=== PATIENT | male | born 1975 | race Caucasian/White ===

== ENCOUNTER 2019-01-27 15:15 | Emergency (ER) | payer SELFPAY ==
[2019-01-27 15:22] VITALS: BP 156/116; PULSE 98; RESP 18; TEMP 37.3; O2SAT 100; BMI 26.5
[2019-01-27 19:38] VITALS: BP 160/122; PULSE 75; RESP 18; O2SAT 84
[2019-01-27] MEDS: TET,DIPH,PERTUSS(ACELL),VAC/PF 0.5 ML SYRINGE IM (20:05)
[2019-01-27 21:43] VITALS: BP 151/101; PULSE 78; RESP 16; O2SAT 98
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
== END 2019-01-27 21:50 | disposition home or self-care (01) ==
PROVIDERS: Emergency Provider Nurse Practitioner Family
DX: T23.001A Burn of unspecified degree of right hand, unspecified site, initial encounter (principal); Z23 Encounter for immunization
CPT/HCPCS: 90471; 99282; 99283; 90715

== ENCOUNTER → 2023-06-09 14:20 | Outpatient (CLI) | payer OTHER, SELFPAY ==
--- NOTE | 2023-06-09 14:24 | DI.RAD.S_ITS ---
PROCEDURE: XR LUMBAR SPINE MIN 4V INDICATIONS: BACK PAIN TECHNIQUE: 5 views of the lumbar spine were acquired, including bilateral oblique views. COMPARISON: None. FINDINGS: Bones: 5 nonrib-bearing vertebrae are present. There is normal bony alignment. No vertebral body compression fractures. No suspicious bony lesions. Moderate disc height loss at L2-3, L4-5 and L5-S1. Mild disc height loss at remaining levels. Facet arthrosis L4 through S1. Soft tissues: Overlying bowel gas pattern is normal. No suspicious soft tissue calcifications. Oblique images: No pars defects. IMPRESSION: Vorl-rn-iijwrtxm degenerative disc disease and lower lumbar facet arthrosis. Dictated by: Joseph Hernandez M.D. on 06/09/2023 at 14:58 Approved by: Joseph Hernandez M.D. on 06/09/2023 at 14:59
== END ==
PROVIDERS: PCP Internal Medicine; Referring Provider Anesthesiology; Visit Provider Anesthesiology
DX: M51.36 Other intervertebral disc degeneration, lumbar region (principal); M51.37 Other intervertebral disc degeneration, lumbosacral region; M47.816 Spondylosis without myelopathy or radiculopathy, lumbar region; M47.817 Spondylosis without myelopathy or radiculopathy, lumbosacral region; M54.9 Dorsalgia, unspecified
CPT/HCPCS: 72110

== ENCOUNTER 2023-07-06 12:53 | Outpatient (CLI) | payer OTHER, SELFPAY ==
[2023-07-06] VITALS (10 sets, daily range): BP systolic 123–185; BP diastolic 80–109; PULSE 98–125; RESP 12–20; TEMP 36.9; O2SAT 95–100
--- NOTE | 2023-07-06 12:54 | DI.RAD.S_ITS ---
PROCEDURE: PAIN L/S TRANSFORAMINAL INJECT INDICATIONS: SPONDYLOSIS COMPARISON: [facility], RG, MRI L-SPINE W/O CONTRAST, 04/26/2023, 7:54. FINDINGS: Fluoroscopic spot filming was performed to verify placement of spinal needles on right at the L2-L3 and L3-L4 levels, as labeled on the films. Appropriate location of the needle tips was confirmed by injection of iodinated contrast. IMPRESSION: Intraprocedural examination demonstrating appropriate positions of the needles. Dictated by: Emir Hyatt M.D. on 07/07/2023 at 14:42 Approved by: Emir Hyatt M.D. on 07/07/2023 at 14:43
[2023-07-06] MEDS: IOPAMIDOL 15 ML VIAL 3 ML INJ (13:37)
[2023-07-06] MEDS: fentaNYL 100 MCG/2 ML INJ 75 MCG IV (13:38)
[2023-07-06] MEDS: DEXAMETHASONE 10 MG/ML VIAL 20 MG INJ (13:38)
[2023-07-06] MEDS: fentaNYL 100 MCG/2 ML INJ 25 MCG IV (13:43)
--- NOTE | 2023-07-06 14:01 | P.PCN_ITS ---
Date/Time/Diagnoses Date of procedure: 07/06/23 Time of procedure: 13:30 Procedure Notes Physician: Scott Simon Total Fluoroscopy time (seconds): 33 Total sedation minutes: 20 Procedure in detail & Post-procedure care: Right L2-3 and L3-4 Transforaminal Epidural Steroid Injection Indications: Scott is presenting for treatment of lumbar radiculopathy with low back and leg pain. Preoperative diagnosis: Lumbar radiculopathy Postoperative diagnosis: Same Focused Examination: Ax3 Mood and affect are normal Vital Signs: VSS ASA: 2 Consent: Following review of allergies and potential side effects/complications, including, but not necessarily limited to, infection, allergic reaction, local tissue breakdown, stroke, temporary or permanent nerve injury, paralysis, and possible , the patient indicated that they understood and agreed to proceed.? An informed consent document was signed by the patient, witnessed by a nurse and placed in the patient's chart.? Additionally, other treatment options including medications and physical therapy were reviewed with the patient. All questions were answered. Site was then marked. Anesthesia: After review of previous anesthetic history and IV conscious s edation, the patient was deemed safe to proceed with today's procedure with IV conscious sedation. IV sedation was accomplished with fentanyl 100 mcg administered by the RN after order by Dr. Simon. Sedation was titrated to patient comfort during the course of the procedure. Patient remained responsive to all verbal commands. Position: Prone Monitoring: NIBP, Pulse oximetry, 3 lead EKG Needle used: 22G 5 inch spinal needle Contrast: Isovue 300M Injectate: 10 mg Dexamethasone mixed with 1% lidocaine 1 ml and normal saline 1 mL Technique: The skin was prepped with chloraprep and draped in a sterile fashion. Time out was performed as per protocol. Oxygen applied via NC. Skin and subcutaneous structures of the needle entry site were infiltrated with 3mL of lidocaine 1%. Under fluoroscopic guidance, using an ipsilateral oblique view,?a 22 gauge 5 inch needle was advanced to the base of the L2?pedicle.? The needle was advanced to the superio-posterior aspect of the neural foramen under lateral view.? Oblique and AP views were rechecked. No paresthesias noted by the patient during needle placement. In AP view and utilizing real-time digital subtraction fluoroscopy, 2 ml contrast was slowly injected. Epidural spread was observed without evidence for intravascular nor intrathecal uptake. Contrast spread was seen craniocaudally. The above injectate was then administered, and the needle was subsequently withdrawn. Skin and subcutaneous structures of the needle entry site were infiltrated with 3mL of lidocaine 1%. Under fluoroscopic guidance, using an ipsilateral oblique view,?a 22 gauge 5 inch needle was advanced to the base of the L3?pedicle.? The needle was advanced to the superio-posterior aspect of the neural foramen under lateral view.? Oblique and AP views were rechecked. No paresthesias noted by the patient during needle placement. In AP view and utilizing real-time digital subtraction fluoroscopy, 2 ml contrast was slowly injected. Epidural spread was observed without evidence for intravascular nor intrathecal uptake. Contrast spread was seen craniocaudally. The above injectate was then administered, and the needle was subsequently withdrawn.Band-Aids applied to injection sites. EBL: less than 1 ml Complications: None Post Procedure: Patient was taken to the recovery and monitored. The patient was provided a Pain Log to continue to record the patient's response to the target- specific procedure prior to the patient's follow-up visit with the referring physician. Patient was stable upon discharge. Detailed post procedure instructions were provided. Patient was asked to call in the event of worsening pain, fever, weakness, numbness or bladder or bowel incontinence.
--- NOTE | 2023-07-06 14:26 | PC.NURSE ---
Patient reports that his pain is the best it has been in 3 months. At d/c patient stood at chair full weight bearing and took steps, no issues. When standing at car took a few steps and reports that his right knee cap is more numb then prior procedure. Pt was able to take a few more steps. Encourage patient to be very careful with walking and to take it easy the rest of the day. Pt has no questions or concerns.
== END 2023-07-06 14:20 | disposition home or self-care (01) ==
LOC: RAD 12:53
PROVIDERS: PCP Internal Medicine; Referring Provider Anesthesiology; Visit Provider Anesthesiology
DX: M54.16 Radiculopathy, lumbar region (principal)
CPT/HCPCS: 64483; 64484; 99152; J1100; J3010

== ENCOUNTER 2024-10-13 16:23 | Emergency (ER) | payer OTHER, SELFPAY ==
[2024-10-13] VITALS (25 sets, daily range): BP systolic 135–199; BP diastolic 92–118; PULSE 71–94; RESP 9–17; TEMP 36.8; O2SAT 95–100; BMI 26.4
--- NOTE | 2024-10-13 16:32 | DI.CT.S_ITS ---
PROCEDURE: CT STROKE INDICATIONS: Positive BE-FAST, Stroke symptoms TECHNIQUE: Noncontrast 4.5 mm thick angled axial sections acquired from the foramen magnum to the vertex, with coronal reformats. For radiation dose reduction, the following was used: automated exposure control, adjustment of mA and/or kV according to patient size. COMPARISON: [facility], CT, CT HEAD WITHOUT CONTRAST, 07/19/2022, 16:35. FINDINGS: Image quality: Mild streak artifact can be seen through the skull base. CSF spaces: Basal cisterns are patent. No extra-axial fluid collections. Ventricles are normal in size and shape. Brain: No midline shift. No intracranial masses or hemorrhage. Serrano-white matter interface is normal. Skull and face: Calvarium and visualized facial bones are intact, without suspicious lesions. Sinuses: Bqmc-sq-gkxakdvk mucosal thickening can be seen with maxillary sinuses. The paranasal sinuses otherwise appear clear. No abnormal fluid is seen within the mastoid air cells. IMPRESSION: No acute intracranial hemorrhage is seen. No acute intracranial pathology. Additional findings: Maxillary sinus disease Note: Case discussed by telephone with Dr. Ruiz at 4:51 p.m. [place] time on October 13, 2024. This study fulfills neurological imaging criteria for inclusion or exclusion of acute stroke therapies based on available published neurological imaging guidelines. Dictated by: Emir Hyatt M.D. on 10/13/2024 at 15:48 Approved by: Emir Hyatt M.D. on 10/13/2024 at 15:51
--- NOTE | 2024-10-13 16:32 | DI.RAD.S_ITS ---
PROCEDURE: XR CHEST 1V INDICATIONS: Possible stroke TECHNIQUE: One view of the chest was acquired. COMPARISON: Merged With [facility], CR, CHEST 1 VIEW, 05/27/2016, 20:59. Merged With [facility], CT, CT ANGIO HEAD AND NECK, 10/13/2024, 16:44. Merged With [facility], CT, CT STROKE, 10/13/2024, 16:44. FINDINGS: Surgical changes and devices: None. Lungs and pleura: An incomplete inspiratory result is noted, causing a crowded appearance to the lung markings. No focal infiltrates are seen. No pneumothorax or significant pleural effusions are seen. Mediastinum: Mediastinal contours appear normal. Heart size is normal. Bones and chest wall: No suspicious bony lesions. Age-appropriate bony degenerative changes are seen. Overlying soft tissues appear unremarkable. IMPRESSION: No focal infiltrates are seen. Portable chest within normal limits for age. Dictated by: Emir Hyatt M.D. on 10/13/2024 at 17:56 Approved by: Emir Hyatt M.D. on 10/13/2024 at 17:56
--- NOTE | 2024-10-13 16:35 | DI.CT.S_ITS ---
PROCEDURE: CT ANGIO HEAD AND NECK INDICATIONS: Please evaluate for Stroke TECHNIQUE: After the administration of intravenous contrast, 1 mm thick sections acquired from the aortic arch through the [place] of [place]. 3-dimensional zjfqhgp-frrefahrw-oztycnipqk (MIP) and/or volume rendering reformats were acquired of the central intracranial vasculature and neck separately. For radiation dose reduction, the following was used: automated exposure control, adjustment of mA and/or kV according to patient size. COMPARISON: [facility], CT, CT STROKE, 10/13/2024, 16:44. FINDINGS: Image quality: Limited by bolus timing, with venous contamination. There is streak artifact seen through the level of the shoulders. BRAIN: CSF spaces: Ventricles are normal in size and shape. Basal cisterns are patent. No extra-axial fluid collections. Brain: No significant abnormality of the brain can be seen. Skull and face: Calvarium and facial bones appear intact, without suspicious lesions. Orbits appear normal. Sinuses: Sinuses and mastoids are clear. HEAD CT ANGIOGRAPHY: Anterior circulation: Intracranial internal carotid arteries are normal in size and flow. The flow within the paired anterior cerebral arteries is normal and symmetric. The flow within the middle cerebral arteries is normal and symmetric. The anterior communicating artery is seen. No aneurysms are seen. Posterior circulation: Visualized portions of the vertebral arteries demonstrate normal caliber, and join to form a normal appearing basilar artery. Flow within the posterior cerebral arteries is normal and symmetric. No aneurysms are seen. NECK CT ANGIOGRAPHY: Carotid system: The great vessels demonstrate a conventional anatomy as they arise from the aortic arch. The origins of the common carotid arteries appear patent. The common carotid arteries demonstrate normal caliber and courses. The bifurcation regions are both widely patent. The internal carotid arteries demonstrate normal calibers and courses. Posterior circulation: The origins of the vertebral arteries both appear widely patent. The more superior extracranial portions of both vertebral arteries also demonstrate normal courses and calibers. They join to form a normal appearing basilar artery. Soft tissues: Visualized neck soft tissues demonstrate no suspicious abnormalities. Bones: No suspicious bony lesions. Visualized cervical spine appears normally aligned. Focal C5-C6 degenerative change can be seen, with at least moderate disc space narrowing, with associated endplate irregularity. Post erected endplate osteophytes are seen at this level. IMPRESSION: No significant intracranial arterial abnormality is seen. No significant abnormality is seen within the arteries of the neck. Additional findings: Focal C5-C6 degenerative change Any quantitative measurements of stenosis were performed using NASCET criteria. Dictated by: Emir Hyatt M.D. on 10/13/2024 at 16:01 Approved by: Emir Hyatt M.D. on 10/13/2024 at 16:03
--- NOTE | 2024-10-13 16:36 | EKG_ITS ---
[place] [id number] [place] [id number] Test Date: 2024-10-13 Pat Name: Scott Bryan Department: [facility] Room: Gender: Male Technical Support Assistant: MILDRED : [id number] Requested By: Order Number: [id number] Reading MD: Russ Alcazar Measurements Intervals [place] Rate: 77 P: 26 SC: 172 QRS: 4 QRSD: 84 T: 23 QT: 376 QTc: 425 Interpretive Statements Normal sinus rhythm Possible Inferior infarct , age undetermined Electronically Signed On 10-14-2024 13:32:12 PST by Russ Alcazar
[2024-10-13 16:44] LABS: Add Manual Diff / Slide Review NO; Basophils Absolute Auto 0 /uL (0-100); Basophils Percent Auto 0.7 % (0-2); Eosinophils Absolute Auto 100 /uL (0-450); Eosinophils Percent Auto 1.9 % (2-4); Hematocrit 46.3 % (41-53); Hemoglobin 16.3 g/dL (13.5-17.5); Lymphocytes Absolute Auto 2200 /uL (1100-4500); Lymphocytes Percent Auto 34.8 % (25-40); Mean Corpuscular HGB Conc 35.2 % (30-36); Mean Corpuscular Volume 90.8 fL (80-100); Monocytes Absolute Auto 600 /uL (0-900); Monocytes Percent Auto 9.6 % (3-14); Neutrophils Absolute Auto 3300 /uL (1500-7000); Platelet Count 223 X10^3/uL (150-400); Red Cell Distribution Width 12.2 % (11.6-14.8); White Blood Cell Count 6.3 X10^3/uL (4.5-11.0)
[2024-10-13 16:50] LABS: Prothrombin Time 11.2 SECONDS (9.4-12.5)
[2024-10-13 16:53] LABS: PTT Partial Thromboplastin Tim 34 SECONDS (25.1-36.5)
[2024-10-13 16:54] LABS: Alanine Aminotransferase 139 IU/L (<50); Albumin Globulin Ratio 1.4 (1.0-2.8); Alkaline Phosphatase 73 U/L (38-126); Aspartate Aminotransferase 107 IU/L (17-59); BUN Creatinine Ratio 18.9 (6-22); Bilirubin Total 1.5 mg/dL (0.2-1.3); Blood Urea Nitrogen 20 mg/dL (9-20); Carbon Dioxide 28 mmol/L (22-32); Chloride 102 mmol/L (98-107); Creatine Kinase 220 U/L (55-170); Estimated Glomerular Filt Rate > 60 mL/min (>60); Globulin 3.7 g/dL (1.7-4.1); Glucose 91 mg/dL (70-100); HEMOLYSIS < 15 (0-50); Magnesium 2.1 mg/dL (1.6-2.3); Potassium 3.8 mmol/L (3.4-5.1); Sodium 138 mmol/L (137-145); Total Protein 8.7 g/dL (6.3-8.2)
--- NOTE | 2024-10-13 17:00 | PC.NURSE ---
PT endorsing extreme dizziness but has no visual field loss.
[2024-10-13 17:05] LABS: Troponin I < 0.012 ng/mL (0.01-0.034)
--- NOTE | 2024-10-13 17:08 | PC.NURSE ---
PT endorses difficulty reading pocket vision screener d/t dizziness and blurred vision. Usually uses reading glasses but does not have them.
[2024-10-13] MEDS: diphenhydrAMINE 50 MG/ML VIAL IV (17:09)
[2024-10-13] MEDS: KETOROLAC 30 MG/ML VIAL 15 MG IV (17:09)
[2024-10-13] MEDS: PROCHLORPERAZINE 10 MG/2 ML VIAL 5 MG IV (17:10)
--- NOTE | 2024-10-13 17:22 | PC.NURSE ---
Pt reports left eye pain/pressure with associated mild headache. Pt denies N/V. Pt endorses some chest tightness. 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 Pt also states he has hx of migraines but states his symptoms today are not like hi previous migraines. Pt denies having issues ambulating.
--- NOTE | 2024-10-13 17:24 | ED.NEUROSD ---
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 had acute onset left retro-orbital pain behind his eye, with some nausea no emesis, difficulty in seeing in both eyes, with blurred vision both eyes, no scotomata, no double vision, no hemianopsia like visual deficits. No weakness or numbness to face arm or leg. No injury or trauma. He has not take blood thinner medications. No new activities. No associated neck pain. No chest pain or shortness of breath. On Anticoagulants: No Related Data Home Medications Medication Instructions Recorded Confirmed allopurinol 100 mg tablet 100 mg PO DAILY 10/13/24 10/13/24 colchicine 0.6 mg tablet 0.6 mg PO DAILY 10/13/24 10/13/24 Allergies Allergy/AdvReac Type Severity Reaction Status Date / Time atorvastatin AdvReac ITCHING Verified 10/13/24 16:26 Review of Systems <Rory Ruiz MD - Last Filed: 10/14/24 12:26> Review of Systems Narrative: see HPI Hematologic/Lymphatic On Anticoagulants: No Patient History <Rory Ruiz MD - Last Filed: 10/14/24 12:26> Medical History Coronary artery disease Dorsalgia Ganglion, right knee Gout Hyperlipidemia Hypertension Lumbar foraminal stenosis Lumbar radiculopathy Migraine with aura Right leg numbness Right leg pain Syncope and collapse Synovial cyst of popliteal space [Hernandez], right knee Social History Smoking Status: Current some day smoker Smoking Status: Current some day smoker alcohol intake frequency: a few times a month Substance Use Type: does not use Exam <Rory Ruiz MD - Last Filed: 10/14/24 12:26> Narrative Exam Narrative: GENERAL: Well-developed patient, in mild distress. HEAD: Atraumatic. Normocephalic. EYES: Pupils equal round and reactive. Extraocular motions intact. No scleral icterus. No injection or drainage. ENT: Nose without bleeding, purulent drainage. Throat without erythema, tonsillar hypertrophy or exudate. Airway patent. NECK: Trachea midline. Non tender CARDIOVASCULAR: Regular rate and rhythm without murmurs, gallops, or rubs. RESPIRATORY: Clear to auscultation. Breath sounds equal bilaterally. No wheezes, rales, or rhonchi. GASTROINTESTINAL: Abdomen soft, non-tender, nondistended. EXTREMITIES: No edema or joint tenderness. BACK: Nontender without deformity or crepitance. No flank tenderness. NEURO: AOx3. Motor functions 5/5 upper and lower extremities. Cranial nerves 2 through 10 unremarkable. Pupils equal and round and reactive. Conjugate gaze, no diplopia. No pain on movement of eyes. [id number] testing normal bilaterally. Clear speech, normal mentation SKIN: No rash or erythema of visible areas Initial Vital Signs Initial Vital Signs: Vital Signs Temperature 98.3 F 10/13/24 16:26 Pulse Rate 94 H 10/13/24 16:26 Respiratory Rate 17 10/13/24 16:26 Blood Pressure 199/114 H 10/13/24 16:26 Pulse Oximetry 99 10/13/24 16:26 Oxygen Delivery Method Room Air 10/13/24 16:26 <Ryan Toney DO - Last Filed: 10/14/24 01:06> Initial Vital Signs Initial Vital Signs: Vital Signs Temperature 98.3 F 10/13/24 16:26 Pulse Rate 94 H 10/13/24 16:26 Respiratory Rate 17 10/13/24 16:26 Blood Pressure 199/114 H 10/13/24 16:26 Pulse Oximetry 99 10/13/24 16:26 Oxygen Delivery Method Room Air 10/13/24 16:26 Course <Rory Ruiz MD - Last Filed: 10/14/24 12:26> Orders Ordered: Discontinued Medications Dexamethasone (Dexamethasone 10 Mg/Ml Vial) 10 mg IV NOW ONE Stop: 10/13/24 17:11 Last Admin: 10/13/24 17:30 Dose: 10 mg Documented By: YAA Diphenhydramine HCl (Diphenhydramine 50 Mg/Ml Vial) 50 mg IV NOW ONE Stop: 10/13/24 16:52 Last Admin: 10/13/24 17:09 Dose: 50 mg Documented By: LOUISE Sodium Chloride (Normal Saline 0.9%) 1,000 mls @ 1,000 mls/hr IV BOLUS ONE Stop: 10/13/24 18:09 Last Infusion: 10/13/24 19:17 Dose: Infused Documented By: Admin: 10/13/24 17:30 Dose: 1,000 mls/hr Documented By: YAA Ketorolac Tromethamine (Ketorolac 30 Mg/Ml Vial) 15 mg IV NOW ONE Stop: 10/13/24 16:52 Last Admin: 10/13/24 17:09 Dose: 15 mg Documented By: LOUISE Ondansetron HCl (Ondansetron 4 Mg/2 Ml Inj) 4 mg IV NOW PRN PRN Reason: Nausea And Vomiting Ondansetron HCl (Ondansetron 4 Mg Odt) 4 mg SL NOW PRN PRN Reason: Nausea And Vomiting Prochlorperazine (Prochlorperazine 10 Mg/2 Ml Vial) 5 mg IV NOW ONE Stop: 10/13/24 16:52 Last Admin: 10/13/24 17:10 Dose: 5 mg Documented By: LOUISE Proparacaine HCl (Proparacaine 0.5% Ophth Kristen) 1 drops EYE-LEFT NOW ONE Stop: 10/13/24 19:46 Last Admin: 10/13/24 19:55 Dose: 1 drop Documented By: WEST Vital Signs Vital signs: Vital Signs - 8 hr 10/13/24 17:10 10/13/24 17:10 10/13/24 17:10 Pulse Rate 91 H 88 Respiratory Rate 13 Blood Pressure 168/106 H 149/107 H Pulse Oximetry 99 Oxygen Delivery Method BiPAP 10/13/24 17:20 10/13/24 17:20 10/13/24 17:30 Pulse Rate 87 87 Respiratory Rate 16 Blood Pressure 176/113 H Pulse Oximetry 98 96 Oxygen Delivery Method 10/13/24 17:30 10/13/24 17:40 10/13/24 17:40 Pulse Rate 77 Respiratory Rate Blood Pressure 155/109 H 135/94 H Pulse Oximetry 96 Oxygen Delivery Method 10/13/24 17:50 10/13/24 17:50 10/13/24 18:00 Pulse Rate 76 76 Respiratory Rate Blood Pressure 150/98 H Pulse Oximetry 97 96 Oxygen Delivery Method 10/13/24 18:00 10/13/24 18:10 10/13/24 18:10 Pulse Rate 80 Respiratory Rate 13 Blood Pressure 142/92 H 146/96 H Pulse Oximetry 97 Oxygen Delivery Method 10/13/24 18:20 10/13/24 18:20 10/13/24 18:30 Pulse Rate 77 75 Respiratory Rate 9 L 11 L Blood Pressure 146/97 H Pulse Oximetry 96 96 Oxygen Delivery Method 10/13/24 18:30 10/13/24 18:40 10/13/24 18:40 Pulse Rate 71 Respiratory Rate Blood Pressure 151/99 H 156/102 H Pulse Oximetry 99 Oxygen Delivery Method 10/13/24 18:50 10/13/24 18:50 10/13/24 19:00 Pulse Rate 75 Respiratory Rate 10 L Blood Pressure 152/100 H 153/103 H Pulse Oximetry 98 Oxygen Delivery Method 10/13/24 19:00 10/13/24 19:15 10/13/24 19:15 Pulse Rate 76 79 Respiratory Rate 12 12 Blood Pressure 153/104 H Pulse Oximetry 99 97 Oxygen Delivery Method Room Air 10/13/24 19:30 10/13/24 19:30 10/13/24 19:45 Pulse Rate 84 Respiratory Rate 12 Blood Pressure 157/104 H 159/110 H Pulse Oximetry 97 Oxygen Delivery Method 10/13/24 19:45 10/13/24 20:00 10/13/24 20:00 Pulse Rate 79 76 Respiratory Rate 10 L 10 L Blood Pressure 137/106 H Pulse Oximetry 97 96 Oxygen Delivery Method 10/13/24 20:15 10/13/24 20:15 10/13/24 20:30 Pulse Rate 77 76 Respiratory Rate 11 L 10 L Blood Pressure 161/97 H Pulse Oximetry 95 95 Oxygen Delivery Method 10/13/24 20:30 10/13/24 20:45 10/13/24 20:45 Pulse Rate 86 Respiratory Rate 10 L Blood Pressure 149/102 H 145/112 H Pulse Oximetry 96 Oxygen Delivery Method <Ryan Toney, - Last Filed: 10/14/24 01:06> Orders Ordered: Discontinued Medications Dexamethasone (Dexamethasone 10 Mg/Ml Vial) 10 mg IV NOW ONE Stop: 10/13/24 17:11 Last Admin: 10/13/24 17:30 Dose: 10 mg Documented By: YAA Diphenhydramine HCl (Diphenhydramine 50 Mg/Ml Vial) 50 mg IV NOW ONE Stop: 10/13/24 16:52 Last Admin: 10/13/24 17:09 Dose: 50 mg Documented By: LOUISE Sodium Chloride (Normal Saline 0.9%) 1,000 mls @ 1,000 mls/hr IV BOLUS ONE Stop: 10/13/24 18:09 Last Infusion: 10/13/24 19:17 Dose: Infused Documented By: Admin: 10/13/24 17:30 Dose: 1,000 mls/hr Documented By: YAA Ketorolac Tromethamine (Ketorolac 30 Mg/Ml Vial) 15 mg IV NOW ONE Stop: 10/13/24 16:52 Last Admin: 10/13/24 17:09 Dose: 15 mg Documented By: LOUISE Ondansetron HCl (Ondansetron 4 Mg/2 Ml Inj) 4 mg IV NOW PRN PRN Reason: Nausea And Vomiting Ondansetron HCl (Ondansetron 4 Mg Odt) 4 mg SL NOW PRN PRN Reason: Nausea And Vomiting Prochlorperazine (Prochlorperazine 10 Mg/2 Ml Vial) 5 mg IV NOW ONE Stop: 10/13/24 16:52 Last Admin: 10/13/24 17:10 Dose: 5 mg Documented By: LOUISE Proparacaine HCl (Proparacaine 0.5% Ophth Kristen) 1 drops EYE-LEFT NOW ONE Stop: 10/13/24 19:46 Last Admin: 10/13/24 19:55 Dose: 1 drop Documented By: WEST Vital Signs Vital signs: Vital Signs - 8 hr 10/13/24 17:10 10/13/24 17:10 10/13/24 17:10 Pulse Rate 91 H 88 Respiratory Rate 13 Blood Pressure 168/106 H 149/107 H Pulse Oximetry 99 Oxygen Delivery Method BiPAP 10/13/24 17:20 10/13/24 17:20 10/13/24 17:30 Pulse Rate 87 87 Respiratory Rate 16 Blood Pressure 176/113 H Pulse Oximetry 98 96 Oxygen Delivery Method 10/13/24 17:30 10/13/24 17:40 10/13/24 17:40 Pulse Rate 77 Respiratory Rate Blood Pressure 155/109 H 135/94 H Pulse Oximetry 96 Oxygen Delivery Method 10/13/24 17:50 10/13/24 17:50 10/13/24 18:00 Pulse Rate 76 76 Respiratory Rate Blood Pressure 150/98 H Pulse Oximetry 97 96 Oxygen Delivery Method 10/13/24 18:00 10/13/24 18:10 10/13/24 18:10 Pulse Rate 80 Respiratory Rate 13 Blood Pressure 142/92 H 146/96 H Pulse Oximetry 97 Oxygen Delivery Method 10/13/24 18:20 10/13/24 18:20 10/13/24 18:30 Pulse Rate 77 75 Respiratory Rate 9 L 11 L Blood Pressure 146/97 H Pulse Oximetry 96 96 Oxygen Delivery Method 10/13/24 18:30 10/13/24 18:40 10/13/24 18:40 Pulse Rate 71 Respiratory Rate Blood Pressure 151/99 H 156/102 H Pulse Oximetry 99 Oxygen Delivery Method 10/13/24 18:50 10/13/24 18:50 10/13/24 19:00 Pulse Rate 75 Respiratory Rate 10 L Blood Pressure 152/100 H 153/103 H Pulse Oximetry 98 Oxygen Delivery Method 10/13/24 19:00 10/13/24 19:15 10/13/24 19:15 Pulse Rate 76 79 Respiratory Rate 12 12 Blood Pressure 153/104 H Pulse Oximetry 99 97 Oxygen Delivery Method Room Air 10/13/24 19:30 10/13/24 19:30 10/13/24 19:45 Pulse Rate 84 Respiratory Rate 12 Blood Pressure 157/104 H 159/110 H Pulse Oximetry 97 Oxygen Delivery Method 10/13/24 19:45 10/13/24 20:00 10/13/24 20:00 Pulse Rate 79 76 Respiratory Rate 10 L 10 L Blood Pressure 137/106 H Pulse Oximetry 97 96 Oxygen Delivery Method 10/13/24 20:15 10/13/24 20:15 10/13/24 20:30 Pulse Rate 77 76 Respiratory Rate 11 L 10 L Blood Pressure 161/97 H Pulse Oximetry 95 95 Oxygen Delivery Method 10/13/24 20:30 10/13/24 20:45 10/13/24 20:45 Pulse Rate 86 Respiratory Rate 10 L Blood Pressure 149/102 H 145/112 H Pulse Oximetry 96 Oxygen Delivery Method MDM - Neuro Symptoms/Deficit <Rory Ruiz MD - Last Filed: 10/14/24 12:26> Lab Data Attestation: I reviewed the patient's lab results. Lab results narrative: White blood cell count 6300, hemoglobin 16.3, [id number] platelets. Basic metabolic panel normal, glucose 91, electrolytes unremarkable.. T bili 1.5, mild transaminitis, alkaline phosphatase not elevated. Troponin negative/unmeasurable. 10/13/24 16:35 10/13/24 16:35 Labs: Lab Results 10/13/24 10/13/24 Range/Units 16:35 18:55 WBC 6.3 (4.5-11.0) X10^3/uL RBC 5.10 (4.5-5.9) X10^6/uL Hgb 16.3 (13.5-17.5) g/dL Hct 46.3 (41-53) % MCV 90.8 (80-100) fL MCH 32.0 (26-34) PG MCHC 35.2 (30-36) % RDW 12.2 (11.6-14.8) % Plt Count 223 (150-400) X10^3/uL Neut % (Auto) 53.0 (50-75) % Lymph % (Auto) 34.8 (25-40) % [place] % (Auto) 9.6 (3-14) % Eos % (Auto) 1.9 L (2-4) % Baso % (Auto) 0.7 (0-2) % Neut # (Auto) 3300 (0229-9761) /uL Lymph # (Auto) 2200 (7869-3520) /uL [place] # (Auto) 600 (0-900) /uL Eos # (Auto) 100 (0-450) /uL Baso # (Auto) 0 (0-100) /uL PT 11.2 (9.4-12.5) SECONDS INR 1.0 (0.9-1.3) APTT 34 (25.1-36.5) SECONDS Sodium 138 (137-145) mmol/L Potassium 3.8 (3.4-5.1) mmol/L Chloride 102 (98-107) mmol/L Carbon Dioxide 28 (22-32) mmol/L BUN 20 (9-20) mg/dL Creatinine 1.06 (0.66-1.25) mg/dL Estimated GFR > 60 (>60) mL/min BUN/Creatinine Ratio 18.9 (6-22) Glucose 91 (70-100) mg/dL Calcium 10.0 (8.4-10.2) mg/dL Magnesium 2.1 (1.6-2.3) mg/dL Total Bilirubin 1.5 H (0.2-1.3) mg/dL AST 107 H (17-59) IU/L ALT 139 H (<50) IU/L Alkaline Phosphatase 73 (38-126) U/L Total Creatine Kinase 220 H (55-170) U/L Troponin I < 0.012 (0.01-0.034) ng/mL Total Protein 8.7 H (6.3-8.2) g/dL Albumin 5.0 (3.5-5.0) g/dL Globulin 3.7 (1.7-4.1) g/dL Albumin/Globulin Ratio 1.4 (1.0-2.8) U Opiates 300ng/mL cut Negative (Negative) Ur Oxycodone Screen Negative (Negative) Urine Methadone Screen Negative (Negative) Ur Barbiturates Screen Negative (Negative) U Tricyclic Antidepress Negative (Negative) Ur Phencyclidine Scrn Negative (Negative) Ur Amphetamines Screen Negative (Negative) U Methamphetamines Scrn Negative (Negative) Ur MDMA Scrn (Ecstasy) Negative (Negative) U Benzodiazepines Scrn Negative (Negative) Urine Cocaine Screen Negative (Negative) U Marijuana (THC) Screen Positive H (Negative) Urine pH Normal (Normal) Urine Specific [place] Normal (Normal) Ur Creatinine Normal (Normal) Point of Care Testing Glucose POC 95 Urine Dip Bedside Urine Glucose Negative Bedside Urine Bilirubin - Negative Bedside Urine Ketone - Negative Urine Specific [place] 1.010 Bedside Urine Occult Blood - Negative Bedside Urine pH 6.0 Bedside Urine Protein - Negative Bedside Urine Urobilinogen - Negative Bedside Urine Nitrite - Negative Bedside Urine Leukocytes - Negative Esterase Imaging Data CT scan - head: Radiologist's Impression: [address] [address] [address] Scan Report Signed Patient: Scott Bryan MR#: [id number] : 1975 Acct:[id number] Age/Sex: 48 / M Date of Service: 10/13/24 Loc: ED Accession Number: [id number] Procedure: CT Stroke Ordering Provider: Rory Ruiz MD PROCEDURE: CT STROKE INDICATIONS: Positive BE-FAST, Stroke symptoms TECHNIQUE: Noncontrast 4.5 mm thick angled axial sections acquired from the foramen magnum to the vertex, with coronal reformats. For radiation dose reduction, the following was used: automated exposure control, adjustment of mA and/or kV according to patient size. COMPARISON: [facility], CT, CT HEAD WITHOUT CONTRAST, 07/19/2022, 16:35. FINDINGS: Image quality: Mild streak artifact can be seen through the skull base. CSF spaces: Basal cisterns are patent. No extra-axial fluid collections. Ventricles are normal in size and shape. Brain: No midline shift. No intracranial masses or hemorrhage. Serrano-white matter interface is normal. Skull and face: Calvarium and visualized facial bones are intact, without suspicious lesions. Sinuses: Mlng-ma-wekgezqg mucosal thickening can be seen with maxillary sinuses. The paranasal sinuses otherwise appear clear. No abnormal fluid is seen within the mastoid air cells. IMPRESSION: No acute intracranial hemorrhage is seen. No acute intracranial pathology. Additional findings: Maxillary sinus disease Note: Case discussed by telephone with Dr. Ruiz at 4:51 p.m. [place] time on October 13, 2024. This study fulfills neurological imaging criteria for inclusion or exclusion of acute stroke therapies based on available published neurological imaging guidelines. Dictated by: Emir Hyatt M.D. on 10/13/2024 at 15:48 Approved by: Emir Hyatt M.D. on 10/13/2024 at 15:51 CTA - brain/neck: Radiologist's Impression: [place] [address] CT Scan Report Signed Patient: Scott Bryan MR#: [id number] : 1975 Acct:[id number] Age/Sex: 48 / M Date of Service: 10/13/24 Loc: ED Accession Number: [id number] Procedure: CT angio head and neck Ordering Provider: Rory Ruiz MD PROCEDURE: CT ANGIO HEAD AND NECK INDICATIONS: Please evaluate for Stroke TECHNIQUE: After the administration of intravenous contrast, 1 mm thick sections acquired from the aortic arch through the [place]. 3-dimensional uereqqm-peldyaogd-vatomotego (MIP) and/or volume rendering reformats were acquired of the central intracranial vasculature and neck separately. For radiation dose reduction, the following was used: automated exposure control, adjustment of mA and/or kV according to patient size. COMPARISON: [facility], CT, CT STROKE, 10/13/2024, 16:44. FINDINGS: Image quality: Limited by bolus timing, with venous contamination. There is streak artifact seen through the level of the shoulders. BRAIN: CSF spaces: Ventricles are normal in size and shape. Basal cisterns are patent. No extra-axial fluid collections. Brain: No significant abnormality of the brain can be seen. Skull and face: Calvarium and facial bones appear intact, without suspicious lesions. Orbits appear normal. Sinuses: Sinuses and mastoids are clear. HEAD CT ANGIOGRAPHY: Anterior circulation: Intracranial internal carotid arteries are normal in size and flow. The flow within the paired anterior cerebral arteries is normal and symmetric. The flow within the middle cerebral arteries is normal and symmetric. The anterior communicating artery is seen. No aneurysms are seen. Posterior circulation: Visualized portions of the vertebral arteries demonstrate normal caliber, and join to form a normal appearing basilar artery. Flow within the posterior cerebral arteries is normal and symmetric. No aneurysms are seen. NECK CT ANGIOGRAPHY: Carotid system: The great vessels demonstrate a conventional anatomy as they arise from the aortic arch. The origins of the common carotid arteries appear patent. The common carotid arteries demonstrate normal caliber and courses. The bifurcation regions are both widely patent. The internal carotid arteries demonstrate normal calibers and courses. Posterior circulation: The origins of the vertebral arteries both appear widely patent. The more superior extracranial portions of both vertebral arteries also demonstrate normal courses and calibers. They join to form a normal appearing basilar artery. Soft tissues: Visualized neck soft tissues demonstrate no suspicious abnormalities. Bones: No suspicious bony lesions. Visualized cervical spine appears normally aligned. Focal C5-C6 degenerative change can be seen, with at least moderate disc space narrowing, with associated endplate irregularity. Post erected endplate osteophytes are seen at this level. IMPRESSION: No significant intracranial arterial abnormality is seen. No significant abnormality is seen within the arteries of the neck. Additional findings: Focal C5-C6 degenerative change Any quantitative measurements of stenosis were performed using NASCET criteria. Dictated by: Emir Hyatt M.D. on 10/13/2024 at 16:01 Approved by: Emir Hyatt M.D. on 10/13/2024 at 16:03 Chest x-ray: Radiologist's Impression: [address] [address] XRay Report Signed Patient: Scott Bryan MR#: [id number] : 1975 Acct:[id number] Age/Sex: 48 / M Date of Service: 10/13/24 Loc: ED Accession Number: [id number] Procedure: XR chest 1V Ordering Provider: Rory Ruiz MD PROCEDURE: XR CHEST 1V INDICATIONS: Possible stroke TECHNIQUE: One view of the chest was acquired. COMPARISON: [facility], CR, CHEST 1 VIEW, 05/27/2016, 20:59. [facility], CT, CT ANGIO HEAD AND NECK, 10/13/2024, 16:44. [facility], CT, CT STROKE, 10/13/2024, 16:44. FINDINGS: Surgical changes and devices: None. Lungs and pleura: An incomplete inspiratory result is noted, causing a crowded appearance to the lung markings. No focal infiltrates are seen. No pneumothorax or significant pleural effusions are seen. Mediastinum: Mediastinal contours appear normal. Heart size is normal. Bones and chest wall: No suspicious bony lesions. Age-appropriate bony degenerative changes are seen. Overlying soft tissues appear unremarkable. IMPRESSION: No focal infiltrates are seen. Portable chest within normal limits for age. Dictated by: Emir Hyatt M.D. on 10/13/2024 at 17:56 Approved by: Emir Hyatt M.D. on 10/13/2024 at 17:56 [facility] Narrative Medical decision making narrative: 48-year-old male with history of remote headaches, today 3:00 p.m. 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 No neck pain. No chest pain or shortness of breath. Code stroke initiated from nursing triage, patient sent for CT head noncontrast imaging and CTA head and neck vessels per protocol. Labs and EKGs additionally ordered. DDx consider intracranial hemorrhage, atypical migraine, conjunctivits or iritis or AOAG of the left eye or with secondary migraine, seems atypical for ischemic stroke, other. CT head no acute changes, see radiology report CT angiogram head and neck vessels no acute changes, see radiology report Headache cocktail initiated with IV Compazine, Benadryl, Toradol, Dexamethasone. Observe for improvement of symptoms. Signed out to oncoming ED shift physician Dr. Dawna Toney: Received turned over. Review patient's history and physical. Has had negative CTA/CT scan. His exam is not consistent with meningitis. I did check his intra-ocular pressures. Right side 22, left side 22. Suspicion for glaucoma. On my initial re-evaluation he stated that the medication that he received earlier today really did not improve much of his headache. Upon re-evaluation when I checked his eye pressures he stated that his headache seems to now be completely resolved and his vision disturbances have resolved as well. No indication for admission to the hospital or antibiotics. Will discharge home with conservative treatment. He was given return precautions. He expressed understanding and agreement with plan. <Ryan Toney, DO - Last Filed: 10/14/24 01:06> Lab Data Labs: Lab Results 10/13/24 10/13/24 Range/Units 16:35 18:55 WBC 6.3 (4.5-11.0) X10^3/uL RBC 5.10 (4.5-5.9) X10^6/uL Hgb 16.3 (13.5-17.5) g/dL Hct 46.3 (41-53) % MCV 90.8 (80-100) fL MCH 32.0 (26-34) PG MCHC 35.2 (30-36) % RDW 12.2 (11.6-14.8) % Plt Count 223 (150-400) X10^3/uL Neut % (Auto) 53.0 (50-75) % Lymph % (Auto) 34.8 (25-40) % [place] % (Auto) 9.6 (3-14) % Eos % (Auto) 1.9 L (2-4) % Baso % (Auto) 0.7 (0-2) % Neut # (Auto) 3300 (4567-1979) /uL Lymph # (Auto) 2200 (7578-6962) /uL [place] # (Auto) 600 (0-900) /uL Eos # (Auto) 100 (0-450) /uL Baso # (Auto) 0 (0-100) /uL PT 11.2 (9.4-12.5) SECONDS INR 1.0 (0.9-1.3) APTT 34 (25.1-36.5) SECONDS Sodium 138 (137-145) mmol/L Potassium 3.8 (3.4-5.1) mmol/L Chloride 102 (98-107) mmol/L Carbon Dioxide 28 (22-32) mmol/L BUN 20 (9-20) mg/dL Creatinine 1.06 (0.66-1.25) mg/dL Estimated GFR > 60 (>60) mL/min BUN/Creatinine Ratio 18.9 (6-22) Glucose 91 (70-100) mg/dL Calcium 10.0 (8.4-10.2) mg/dL Magnesium 2.1 (1.6-2.3) mg/dL Total Bilirubin 1.5 H (0.2-1.3) mg/dL AST 107 H (17-59) IU/L ALT 139 H (<50) IU/L Alkaline Phosphatase 73 (38-126) U/L Total Creatine Kinase 220 H (55-170) U/L Troponin I < 0.012 (0.01-0.034) ng/mL Total Protein 8.7 H (6.3-8.2) g/dL Albumin 5.0 (3.5-5.0) g/dL Globulin 3.7 (1.7-4.1) g/dL Albumin/Globulin Ratio 1.4 (1.0-2.8) U Opiates 300ng/mL cut Negative (Negative) Ur Oxycodone Screen Negative (Negative) Urine Methadone Screen Negative (Negative) Ur Barbiturates Screen Negative (Negative) U Tricyclic Antidepress Negative (Negative) Ur Phencyclidine Scrn Negative (Negative) Ur Amphetamines Screen Negative (Negative) U Methamphetamines Scrn Negative (Negative) Ur MDMA Scrn (Ecstasy) Negative (Negative) U Benzodiazepines Scrn Negative (Negative) Urine Cocaine Screen Negative (Negative) U Marijuana (THC) Screen Positive H (Negative) Urine pH Normal (Normal) Urine Specific [place] Normal (Normal) Ur Creatinine Normal (Normal) Point of Care Testing Glucose POC 95 Urine Dip Bedside Urine Glucose Negative Bedside Urine Bilirubin - Negative Bedside Urine Ketone - Negative Urine Specific [place] 1.010 Bedside Urine Occult Blood - Negative Bedside Urine pH 6.0 Bedside Urine Protein - Negative Bedside Urine Urobilinogen - Negative Bedside Urine Nitrite - Negative Bedside Urine Leukocytes - Negative Esterase MDM Narrative Medical decision making narrative: 48-year-old male with history of remote headaches, today 3:00 p.m. 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 No neck pain. No chest pain or shortness of breath. Code stroke initiated from triage, patient sent for CT head noncontrast imaging and CTA head and neck vessels. Labs and EKGs sent. CT head no acute changes, see radiology report CT angiogram head and neck vessels no acute changes, see radiology report Headache cocktail initiated with IV Compazine, Benadryl, Toradol, dexamethasone. Observe for improvement of symptoms. Signed out to oncoming ED shift physician Dr. Dawna Toney: Received turned over. Review patient's history and physical. Has had negative CTA/CT scan. His exam is not consistent with meningitis. I did check his intra-ocular pressures. Right side 22, left side 22. Suspicion for glaucoma. On my initial re-evaluation he stated that the medication that he received earlier today really did not improve much of his headache. Upon re-evaluation when I checked his eye pressures he stated that his headache seems to now be completely resolved and his vision disturbances have resolved as well. No indication for admission to the hospital or antibiotics. Will discharge home with conservative treatment. He was given return precautions. He expressed understanding and agreement with plan. Discharge Plan Departure Patient Disposition: Home Clinical Impression: Headache, Blurred vision Instructions: DI for Headache Activity Restrictions/Additional Instructions: Continue to take all of your medications as directed. You can take Tylenol and/or ibuprofen. If you develop new symptoms to include fevers, rash, worsening vision changes or balance issues please return to the emergency department for further evaluation. Prescriptions: No Action allopurinol 100 mg tablet 100 mg PO DAILY colchicine 0.6 mg tablet 0.6 mg PO DAILY Referrals: Josué Gann MD [Primary Care Provider] - Stand Alone Forms: Patient Portal/API/Survey
[2024-10-13] MEDS: DEXAMETHASONE 10 MG/ML VIAL IV (17:30)
[2024-10-13] MEDS: SODIUM CHLORIDE 0.9% 1,000 ML 1000 ML IV (17:30)
[2024-10-13 19:11] LABS: Ur Creatinine Normal (Normal); Ur Specific Gravity Normal (Normal); Urine Amphetamines Negative (Negative); Urine Cocaine Negative (Negative); Urine MDMA Negative (Negative); Urine Methamphetamines Negative (Negative); Urine Opiates Negative (Negative); Urine Phencyclidine Negative (Negative); Urine pH Normal (Normal)
[2024-10-13 19:12] LABS: Urine Barbiturates Negative (Negative); Urine Benzodiazepines Negative (Negative); Urine Methadone Negative (Negative); Urine Oxycodone Negative (Negative); Urine THC Positive (Negative); Urine Tricyclic Antidepressant Negative (Negative)
--- NOTE | 2024-10-13 19:21 | PC.NURSE ---
Reassessed; no change.
[2024-10-13] MEDS: PROPARACAINE 0.5% OPHTH SOL 1 DROPS EYE-LEFT (19:55)
== END 2024-10-13 20:59 | disposition home or self-care (01) ==
PROVIDERS: Emergency Medicine; Emergency Provider Emergency Medicine; PCP Internal Medicine
DX: R51.9 Headache, unspecified (principal); H53.8 Other visual disturbances; H57.12 Ocular pain, left eye
CPT/HCPCS: 36415; 70450; 70496; 70498; 71045; 80053; 80305; 81003; 82550; 82962; 83735; 84484; 85025; 85610; 85730; 93005; 96361; 96374; 96375; 99285; J0780; J1100; J1200; J1885; Q9967